=== PATIENT | female | born 1945 | race Caucasian/White ===

== ENCOUNTER 2021-02-08 18:38 | Emergency (ER) | payer MEDICARE, SELFPAY ==
[2021-02-08] VITALS (10 sets, daily range): BP systolic 158–203; BP diastolic 73–79; PULSE 60–77; RESP 16; TEMP 36.6; O2SAT 91–99; BMI 29.2
--- NOTE | 2021-02-08 18:53 | DI.CT.S_ITS ---
PROCEDURE: CT HEAD/BRAIN WO CON INDICATIONS: known subdural TECHNIQUE: Noncontrast 4.5 mm thick angled axial sections acquired from the foramen magnum to the vertex, with coronal and sagittal reformats. For radiation dose reduction, the following was used: automated exposure control, adjustment of mA and/or kV according to patient size. COMPARISON: Prior exam report 02/07/2021. Images not available FINDINGS: Image quality: Excellent. CSF spaces: Basal cisterns are patent. No extra-axial fluid collections. The ventricles are symmetric in size and shape. Brain: No intracranial bleeds or masses. There is cerebral volume loss for age, with resultant ventricular and sulcal prominence. There are periventricular and deep white matter chronic small vessel ischemic changes. There is intracranial internal carotid artery atherosclerosis. Old lacunar infarct noted in the right thalamus Skull and face: Calvarium and visualized facial bones appear intact, without suspicious lesions. Sinuses: Air-fluid level right maxillary sinus, partially imaged IMPRESSION: 1. No evidence of intracranial hemorrhage. The reported left temporal subdural hematoma has resolved. 2. Atrophy and chronic ischemic change. 3. Chronic appearing right thalamic lacunar infarct. Dictated by: Douglas Diaz M.D. on 02/08/2021 at 18:21 Approved by: Douglas Diaz M.D. on 02/08/2021 at 18:28
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
[2021-02-08] MEDS: HYDROCODONE/ACET 5/325 TABLET 1 TAB PO (20:06)
== END 2021-02-08 22:13 | disposition home or self-care (01) ==
PROVIDERS: Emergency Provider Emergency Medicine
DX: S09.90XS Unspecified injury of head, sequela (principal); S62.109A Fracture of unspecified carpal bone, unspecified wrist, initial encounter for closed fracture; R42 Dizziness and giddiness; R51.9 Headache, unspecified
CPT/HCPCS: 36415; 70450; 99284

== ENCOUNTER → 2021-04-18 14:14 | Outpatient (CLI) | payer MEDICARE, SELFPAY ==
--- NOTE | 2021-04-18 | DI.RAD.S_ITS ---
PROCEDURE: XR DEXA AXIAL SKELETON INDICATIONS: SCREENING COMPARISON: None. FINDINGS: This blank DEXA report has been sent in error by the PACS system. The correct and complete report will be forthcoming in 1-2 days. Thank you for your patience and understanding. Dictated by: Beth Lui MD, PhD on 04/18/2021 at 17:03 Approved by: Beth Lui MD, PhD on 04/18/2021 at 17:03
== END ==
PROVIDERS: PCP Internal Medicine; Referring Provider Internal Medicine; Visit Provider Internal Medicine
DX: Z13.820 Encounter for screening for osteoporosis; M85.851 Other specified disorders of bone density and structure, right thigh; Z78.0 Asymptomatic menopausal state
CPT/HCPCS: 77080